=== PATIENT | male | born 1990 | race African-American/Black ===

== ENCOUNTER 2018-11-17 08:05 | Emergency (ER) | payer MEDICAID ==
[~2018-11-17] VITALS: Ht 175.3 cm; Wt 80.0 kg
[~2018-11-17 08:05] MED LIST: ALBUTEROL; HYDR-523 PO
[2018-11-17] MEDS ORDERED: HYDROCODONE/ACETAMINOPHEN 5/325MG TABLET PO ONE (08:45)
[2018-11-17 09:28] LABS: CHLORIDE 103 mEq/L (98-107)
[2018-11-17 09:32] LABS: HEMATOCRIT. 46.4 % (42.0-52.0); HEMOGLOBIN. 15.7 g/dL (14.0-18.0); MEAN CORPUSCULAR VOLUME 97.8 fL (80.0-94.0); PLATELET 213 x1000/uL (130-400); RED BLOOD CELL COUNT 4.75 mill/uL (4.7-6.1); RED CELL DISTRIBUTION WIDTH 13.6 % (11.6-14.6)
[2018-11-17] MEDS ORDERED: CEFAZOLIN 1000MG PREMIX 50 ML IV ONE (10:00)
[2018-11-17] MEDS ORDERED: KETOROLAC 30MG/ML VIAL IV ONE (10:30)
[2018-11-17] MEDS ORDERED: VANCOMYCIN 1 G PREMIX 200 ML IV SCH (10:30)
[2018-11-17 12:47] LABS: PLATELET ESTIMATE NORMAL
[2018-11-17 15:44] VITALS: BP 117/74
== END 2018-11-17 16:21 | disposition short-term general hospital (02) ==
LOC: ER 08:07
DX: L03.011 Cellulitis of right finger (principal); Z88.8 Allergy status to other drugs, medicaments and biological substances
CPT/HCPCS: 36415; 73140; 80053; 83605; 85025; 87040; 96365; 96366; 96367; 96375; 99285; J0690; J1885; J3370

== ENCOUNTER 2022-01-25 11:11 | Emergency (ER) | payer SELFPAY ==
[2022-01-25] MEDS ORDERED: METHYLPREDNISOLONE SOD SUCC 125 MG/2 ML VIAL IV STA (11:21)
[2022-01-25] MEDS ORDERED: IPRATROPIUM BROMIDE (0.02%) 0.5MG/2.5ML NEB HHN STA (11:21)
[2022-01-25] MEDS ORDERED: ALBUTEROL (0.083%) 2.5MG/3ML NEB HHN SCH (11:30)
== END 2022-01-25 11:51 | disposition left against medical advice (07) ==
LOC: ER 11:11
DX: Z53.21 Procedure and treatment not carried out due to patient leaving prior to being seen by health care provider (principal)